=== PATIENT | female | born 1970 ===

== ENCOUNTER 2018-07-24 20:40 | Emergency (ER) | payer MEDICAID ==
[~2018-07-24] VITALS: Ht 157.5 cm; Wt 105.2 kg
[2018-07-24 20:51] VITALS: Ht 157.5 cm; Wt 105.2 kg
[2018-07-24] MEDS ORDERED: LISINOPRIL-HCT1 EAC8 PO (20:54)
[2018-07-24] MEDS ORDERED: LIPITOR40 MG (20:55)
[2018-07-24] MEDS ORDERED: CLARITIN 10 MG10 MG PO (20:55)
[2018-07-24] MEDS ORDERED: NEURONTIN600 MG PO (22:01)
[2018-07-24] MEDS ORDERED: VIBRAMYCIN 100100 MG PO (23:20)
[2018-07-24] MEDS ORDERED: TALWIN NX1 TAB PO (23:21)
[2018-07-25 00:16] VITALS: BP 135/75
== END 2018-07-25 00:16 | disposition home or self-care (01) ==
LOC: D.ER 20:40
DX: R22.41 Localized swelling, mass and lump, right lower limb (principal); M79.671 Pain in right foot

== ENCOUNTER 2018-08-03 12:33 | Emergency (ER) | payer MEDICAID ==
[~2018-08-03] VITALS: Ht 157.5 cm; Wt 105.5 kg
[~2018-08-03 12:33] MED LIST: CLARITIN 10 MG10 MG PO; LIPITOR40 MG; LISINOPRIL-HCT1 EAC8 PO; NEURONTIN600 MG PO; TALWIN NX1 TAB PO; VIBRAMYCIN 100100 MG PO
[2018-08-03 12:40] VITALS: Ht 157.5 cm; Wt 105.5 kg
[2018-08-03] MEDS ORDERED: ACETAMINOPHEN500 M1 PO (13:46)
[2018-08-03 14:17] VITALS: BP 122/70
== END 2018-08-03 14:17 | disposition home or self-care (01) ==
LOC: D.ER 12:33
DX: M79.671 Pain in right foot (principal); E11.9 Type 2 diabetes mellitus without complications

== ENCOUNTER 2018-08-23 00:52 | Emergency (ER) | payer MEDICAID ==
[~2018-08-23] VITALS: Ht 157.5 cm; Wt 105.5 kg
[~2018-08-23 00:52] MED LIST changes: +ACETAMINOPHEN500 M1 PO
[2018-08-23 00:57] VITALS: Ht 157.5 cm; Wt 105.5 kg
[2018-08-23] MEDS ORDERED: MEDROL DOSE PACK4 MG PO (02:00)
[2018-08-23] MEDS ORDERED: ACETAMINOPHEN500 M1 PO (02:00)
[2018-08-23] MEDS ORDERED: CYCLOBENZAPRINE10 MG PO (02:00)
[2018-08-23 02:11] VITALS: BP 132/76
== END 2018-08-23 02:11 | disposition home or self-care (01) ==
LOC: D.ER 00:52
DX: S40.012A Contusion of left shoulder, initial encounter (principal); S50.02XA Contusion of left elbow, initial encounter; S50.12XA Contusion of left forearm, initial encounter; W18.31XA Fall on same level due to stepping on an object, initial encounter; Y93.89 Activity, other specified; S50.312A Abrasion of left elbow, initial encounter